=== PATIENT | female | born 1970 | race Caucasian/White ===

== ENCOUNTER → 2018-08-22 | Outpatient (CLI) | payer MEDICARE, MEDICAID ==
--- NOTE | 2018-08-23 16:32 | MRI ---
EXAM DESCRIPTION: Cervical Spine CLINICAL HISTORY: G82.52 COMPARISON: None Available. TECHNIQUE: MRI of the cervical spine is performed according to our usual protocol. FINDINGS: Sagittal T2 images reveal decreased signal intensity within the intervertebral discs. C5 and C6 are fused. Posterior annular bulges are present at multiple levels and there is narrowing of the AP diameter of the spinal canal at C3-4 and C6-7. Normal T2 appearance of the cervical cord. Sagittal T1 images show benign marrow signal characteristics. Marked degenerative facet spurring of facets in the upper cervical levels. Normal T1 appearance of the cervical and upper thoracic spinal cord. Normal alignment of the vertebral bodies and facets. Sagittal STIR images are negative for high signal intensity marrow edema within the vertebral bodies or posterior elements. No paraspinous fluid collection or cystic lesion. Mild increased signal intensity in the cervical spinal cord appears linear posterior to C4. Axial images were obtained to evaluate the disc levels. C2-3: Posterior leftward low signal intensity abnormality could be chronic calcified disc herniation or large osteophyte of the posterior left uncovertebral joint. This measures 4 mm in AP dimension and 8 mm in mediolateral width. Moderate to severe bilateral neural foraminal narrowing is present. Marked facet degenerative changes on the right with mild left facet degeneration. Normal appearance of the cord at this level. C3-4: Moderate posterior disc/osteophyte complex is seen narrowing the AP diameter of the spinal canal to 8 mm. There is effacement of CSF posterior to the cord. Mild ventral cord contouring. Severe bilateral facet and uncovertebral joint spurring is noted causing severe bilateral neural foraminal narrowing. C4-5: At this anomalous appearing disc level, normal posterior disc margin is seen with no spinal stenosis or neural foraminal narrowing. Severe left facet hypertrophic spurring is present with severe narrowing of the left neural foramen. Moderate left uncovertebral joint spurring. Normal appearance of the cord at this level. C5-6: Normal posterior disc margin with no spinal stenosis at this fused disc level. Mild facet hypertrophic spurring. No significant neural foraminal narrowing. Normal appearance of the cord at this level. C6-7: Moderately severe diffuse posterior disc/osteophyte complex is seen narrowing the AP diameter the spinal canal to 6 mm. There is midline and left paracentral accentuation compromising the entry zone to the left neural foramen. There is ventral cord contouring. Moderately severe bilateral neural foraminal narrowing is related to uncovertebral joint spurring. Facet degenerative changes are minimal. C7-T1: Normal posterior disc margin with no spinal stenosis or neural foraminal narrowing. Facets appear normal. Normal appearance of the cord at this level. IMPRESSION: Moderately severe posterior disc/osteophyte complex causing spinal stenosis at C6-7. Moderate diffuse posterior disc/osteophyte complex at C3-4 with mild spinal stenosis. Multilevel neural foraminal narrowing related to facet and uncovertebral joint spurring as described. Electronically signed by: Torres Gaytan MD 08/23/2018 4:30 PM [facility]
== END ==
LOC: MRI 13:00
PROVIDERS: ATTEND Psychiatry & Neurology Neurology
DX: G82.52 Quadriplegia, C1-C4 incomplete (principal); M25.78 Osteophyte, vertebrae; M48.02 Spinal stenosis, cervical region